=== PATIENT | female | born 2000 | race Caucasian/White ===

== ENCOUNTER 2021-07-19 17:40 | Emergency (ER) | payer BC ==
[2021-07-19] MEDS ORDERED: Ondansetron 4 MG/2 ML SDV IVPUSH ONE (18:11)
[2021-07-19] MEDS ORDERED: Sodium Chloride 0.9% 1,000 ML IV ONE (18:11)
[2021-07-19] MEDS ORDERED: Ketorolac 30 MG/ML SDV IVPUSH ONE (18:11)
[2021-07-19 18:58] LABS: BLOOD UREA NITROGEN,BUN 5 mg/dL (7.0-18.0); CARBON DIOXIDE,CO2 27.1 mmol/L (21.0-32.0); CHLORIDE,CL 102 mmol/L (98-107); GLUCOSE RANDOM 89 mg/dL (74-106); POTASSIUM,K 4.2 mmol/L (3.5-5.1); SODIUM,NA 139 mmol/L (136-145)
[2021-07-21 13:06] LABS: C.TRACHOMATIS BY TMA Negative (Negative); N.GONORRHOEAE BY TMA Negative (Negative)
== END 2021-07-19 21:03 | disposition home or self-care (01) ==
LOC: MW.ED 17:40
DX: N30.00 Acute cystitis without hematuria (principal); N89.8 Other specified noninflammatory disorders of vagina; Z88.0 Allergy status to penicillin; Z72.0 Tobacco use
CPT/HCPCS: 36415; 74176; 80053; 81001; 84703; 85025; 87480; 87491; 87510; 87591; 87660; 96374; 96375; 99284; J1885; J2405; J7030; 99283